=== PATIENT | female | born 1960 | race Caucasian/White ===

== ENCOUNTER 2016-10-21 13:14 | Emergency (ER) | payer OTHER ==
[~2016-10-21 13:14] MED LIST: BACTRIM DS TABL1 TAB PO; CLEOCIN150 MG PO; FLEXERIL PO; IBUPROFEN800 MG PO; KEFLEX PO; LORTAB 5/500 TA1 TA1; LORTAB 5/500 TA1 TA2 PO; PEN-VEE K PO; VICODIN 5/500 T1 TAB PO
== END 2016-10-21 15:42 | disposition home or self-care (01) ==
LOC: CED 13:14
DX: S51.812A Laceration without foreign body of left forearm, initial encounter (principal); F17.200 Nicotine dependence, unspecified, uncomplicated; W23.0XXA Caught, crushed, jammed, or pinched between moving objects, initial encounter; Y92.009 Unspecified place in unspecified non-institutional (private) residence as the place of occurrence of the external cause
CPT/HCPCS: 12002; 99283